=== PATIENT | male | born 1970 ===

== ENCOUNTER 2018-08-12 17:01 | Outpatient (REF) | payer BC, SELFPAY ==
[2018-08-12 21:44] LABS: Absolute Basophil Count 0.03 k/cumm (0.0-0.2); Absolute Eosinophil Count 0.05 k/cumm (0.0-0.7); Absolute Lymphocyte Count 2.03 k/cumm (1.2-3.4); Absolute Monocyte Count 0.44 k/cumm (0.11-0.7); Absolute Neutrophil Count 2.81 k/cumm (1.2-6.7); Basophils % 0.6; Eosinophils % 0.9; HGB 15.3 g/dL (13.5-17.5); Lymphocytes % 37.9; Mean Corpuscular Hemoglobin 29.8 pg (27.0-33.0); Mean Corpuscular Volume 87.5 fL (80-95); Mean Platelet Volume 10.2 fL (8.0-11.0); Monocytes % 8.2; Neutrophils % 52.4; Platelet Count 310 x1000/uL (130-400); RBC 5.14 m/cumm (4.50-6.00); RBC Distribution Width 12.6 % (11.8-14.1); White Blood Cell Count 5.36 k/cumm (4.4-10.8)
[2018-08-12 22:09] LABS: Anion Gap 9.1 mmol/L (3-11); BUN 22 mg/dL (7-18); CO2 27.9 mmol/L (21.0-32.0); CREATININE 1.09 mg/dL (0.70-1.30); Calcium 8.7 mg/dL (8.5-10.1); Chloride 102 mmol/L (98-107); Glucose 96 mg/dL (70-100); Potassium 4.1 mmol/L (3.5-5.1); Sodium 139 mmol/L (136-145); TSH (W/Ref FT4) 1.96 uIU/mL (0.358-3.74)
[2018-08-12 22:29] LABS: ESR 3 MM/HR (0-15)
== END 2018-08-12 17:21 ==
LOC: NCHCN 17:01
PROVIDERS: PCP Family Medicine; Visit Provider Family Medicine
DX: R63.5 Abnormal weight gain (principal); R53.83 Other fatigue; R51 Headache
CPT/HCPCS: 80048; 85652; 84443; 85025